=== PATIENT | female | born 1940 | race Caucasian/White ===

== ENCOUNTER 2018-03-12 15:24 | Outpatient (CLI) | payer MEDICARE | END 2018-03-12 15:25 | disposition home or self-care (01) | LOC: BICMAMMO 15:24 | PROVIDERS: ATTEND Family Medicine | DX: Z12.31 Encounter for screening mammogram for malignant neoplasm of breast (principal); R92.1 Mammographic calcification found on diagnostic imaging of breast | CPT/HCPCS: 77063; 77067 ==

== ENCOUNTER → 2019-01-08 | Day surgery (SDC) | payer MEDICARE ==
--- NOTE | 2019-01-08 16:50 | ULT ---
VENOUS DUPLEX SONOGRAM LEFT LOWER EXTREMITY: HISTORY: Left leg pain and edema. FINDINGS: The left common femoral vein and greater saphenous junction were evaluated, along with the femoral, d eep femoral, popliteal, and posterior tibial veins. There is good color and spectral Doppler flow and compression. IMPRESSION: No sonographic evidence of deep venous thrombosis within the left lower extremity. POS: NAVIN
== END ==
LOC: ULT 14:10
PROVIDERS: ATTEND Pathology Anatomic Pathology & Clinical Pathology
DX: M79.662 Pain in left lower leg (principal); R60.0 Localized edema; Z88.1 Allergy status to other antibiotic agents

== ENCOUNTER 2020-06-10 21:17 | Observation (INO) | payer MEDICARE, OTHER ==
[2020-06-10] MEDS ORDERED: Senokot S 8.6-50 MG TAB PO PRN (23:15)
[2020-06-10 23:27] VITALS: BMI 41.2
[2020-06-10] MEDS ORDERED: Carvedilol 6.25 MG TAB PO SCH (23:30)
[2020-06-10] MEDS ORDERED: Lisinopril 10 MG TAB PO SCH (23:30)
[2020-06-10] MEDS ORDERED: hydrALAZINE 10 MG TAB PO SCH (23:30)
[2020-06-11 00:02] LABS: Troponin I 0.063 ng/mL (< 0.028)
[2020-06-11] MEDS ORDERED: Dextrose 50% Abboject 50 ML SYRINGE SLOW IVP PRN (00:49)
[2020-06-11] MEDS ORDERED: Dextrose 5% in Water 1,000 ML IV PRN (00:49)
[2020-06-11] MEDS ORDERED: HumaLOG 300 UNITS/3 ML VIAL SC PRN (00:49)
--- NOTE | 2020-06-11 01:30 | HP ---
CHIEF COMPLAINT: Chest pain. HISTORY OF PRESENT ILLNESS: Ms. Castillo is a 79-year-old female who reports to the emergency room in [place] today for chest pain, which she reports started after she had been stung multiple times by a hive of wasps that she disturbed while she was mowing. She reports multiple stings. Reports that they called 911. EMS came out, gave her some Benadryl and watched her and then when she started having chest pain, she wanted them to take her to the emergency room. She denies any history of any cardiovascular issues. She said that she has had an echo and a stress test many years ago and both were fine. She does have a past medical history pertinent for diabetes type 2, hyperlipidemia, and hypertension. She reports family history of cardiac is distant, grandparents. In the emergency room, they noticed that her troponin was in the indeterminate range. She received an aspirin, Benadryl, morphine, Solu-Medrol, and some normal saline. Her EKG over in [place] was a normal sinus rhythm, beats per minute 71, left axis deviation, no ST-T wave changes, and then she was sent over to [facility] for admission. REVIEW OF SYSTEMS: Reports chest pain. Reports a little shortness of breath. Reports pain from the wasps stings. She denies any fever or chills. Reports some transient abdominal pain. Denies any nausea. Denied any diaphoresis. All other systems are reviewed and are negative unless mentioned in the HPI. PAST MEDICAL HISTORY: Please see HPI. PAST SURGICAL HISTORY: Hysterectomy, several knee surgeries, bilateral knee replacement, left shoulder rotator cuff, spinal surgery, tonsillectomy, 2 cataract surgeries. PSYCHIATRIC HISTORY: Anxiety, depression. SOCIAL HISTORY: Denies any alcohol or drug use. No smoking history. ALLERGIES: CIPRO AND LEVAQUIN. CURRENT MEDICATIONS: Per the ER system, which still need to be verified; 1. Carvedilol 12.5 mg p.o. b.i.d. 2. Hydralazine 10 mg p.o. b.i.d. 3. Lisinopril 40 mg p.o. once a day. 4. Metformin 500 mg p.o. b.i.d. 5. Pravastatin 40 mg p.o. once a day in the evening. 6. Amlodipine 5 mg p.o. once a day. 7. Sertraline 50 mg p.o. q. day. PHYSICAL EXAMINATION: VITAL SIGNS: Blood pressure 159/77, pulse is 71, respiratory rate is 18, pO2 sats are 94% on room air. CONSTITUTIONAL: The patient is alert and oriented to person, place, and time. HEAD: Atraumatic and normocephalic. EYES: Pupils are equally round and reactive to light. ENT: Mouth exam is normal. Mucous membranes are moist. NECK: Normal range of motion. Trachea is midline. RESPIRATORY/CHEST: Breath sounds are clear. Chest expansion is equal. CARDIOVASCULAR: Regular rate and rhythm. Heart sounds are normal. ABDOMEN: Nontender. Bowel sounds are heard. NEUROLOGIC: The patient is oriented to person, place, and time. Speech is normal. SKIN: Warm and dry. She does have some mild erythema and swelling to the upper extremities where the patient was stung multiple times. PSYCH: The patient has a normal affect. She is oriented to person, place, and time. PLAN/ASSESSMENT: 1. Chest pain after being stung by multiple wasps. We will order serial troponins. She had one in the [place] that was in the indeterminate range. We will order fasting lipids and a TSH level. Once serial troponins are resulted, can determine further steps. 2. History of hypertension. We will restart home medications. 3. History of diabetes, a.c. and at bedtime Accu-Cheks with some sliding scale. We will restart her home medication close to discharge. 4. History of anxiety and depression. We will restart her Zoloft. 5. Deep venous thrombosis and gastrointestinal prophylaxis have been started. 6. Case discussed with Dr. Franks who agrees with plan. Job ID: [id number]
[2020-06-11 03:16] LABS: #Lymphocytes 0.8 thou/uL (1.20-3.40); #Neutrophils 8.4 thou/uL (1.40-6.50); %Basophils 0.1 % (0.0-1.0); %Lymphocytes 8.3 % (21.0-51.0); %Monocytes 0.3 % (0.0-10.0); %Neutrophils 91.3 % (42.0-75.0); Hemoglobin 12.9 g/dL (12.0-16.0); Mean Corpuscular HGB CONC 33.1 g/dL (32.0-36.0); Mean Corpuscular Hemoglobin 31.5 pg (27.0-31.0); Mean Corpuscular Volume 95.1 fL (78.0-98.0); Mean Platelet Volume 6.7 fL (7.4-10.4); Platelet Count 256 thou/uL (130-400); White Blood Cell (WBC) Count 9.2 thou/uL (4.8-10.8)
[2020-06-11 03:47] LABS: ALT (SGPT) 17 U/L (8-55); AST (SGOT) 17 U/L (5-34); Albumin 3.8 g/dL (3.4-4.8); Alkaline Phosphatase 57 U/L (40-110); Anion Gap 13 mmol/L (10-20); BUN (Urea Nitrogen) 29 mg/dL (9.8-20.1); Bilirubin, Total 0.5 mg/dL (0.2-1.2); Calc. Creatinine Clearance 74 mL/min (70-130); Calcium 9.8 mg/dL (7.8-10.44); Carbon Dioxide 23 mmol/L (23-31); Chloride 108 mmol/L (98-107); Cholesterol 174 mg/dl (< 200 Desired); Estimated GFR-MDRD 54; Globulin 2.6 g/dL (2.4-3.5); Glucose 269 mg/dL (83-110); HDL Cholesterol 44 mg/dL (>60 Neg Risk); LDL Cholesterol, Calculated 109 mg/dL; Protein, Total 6.4 g/dL (6.0-8.3); Sodium 140 mmol/L (136-145); Triglycerides 104 mg/dL (Less than 150)
[2020-06-11 03:52] LABS: Troponin I 0.039 ng/mL (< 0.028)
[2020-06-11] MEDS: Aspirin 81 mg Enteric Coated Tablet PO SCH (08:46)
[2020-06-11] MEDS: Enoxaparin Sodium 40 MG/0.4 ML SYRINGE SC SCH (08:47)
[2020-06-11] MEDS: Amlodipine 5 MG TAB PO SCH (08:47)
[2020-06-11] MEDS: Famotidine 20 MG TAB PO SCH ×2 (08:48→20:52)
[2020-06-11] MEDS ORDERED: Ibuprofen 200 MG TAB PO PRN (08:58)
[2020-06-11] MEDS ORDERED: hydrALAZINE 10 MG TAB PO SCH (09:00)
[2020-06-11] MEDS ORDERED: Lorazepam 2 MG/ML VIAL SLOW IVP PRN (12:31)
[2020-06-11] MEDS: Carvedilol 6.25 MG TAB PO SCH ×2 (12:38→20:52)
[2020-06-11] MEDS: Lisinopril 20 MG TAB PO SCH (12:38)
[2020-06-11] MEDS: cloNIDine 0.1 MG TAB PO PRN (17:58)
[2020-06-11] MEDS: HumaLOG 300 UNITS/3 ML VIAL SC PRN (18:00)
[2020-06-11] MEDS: hydrALAZINE 25 MG TAB PO SCH (20:53)
[2020-06-11] MEDS ORDERED: Atorvastatin Calcium 10 MG TAB PO SCH (21:00)
[2020-06-11] MEDS ORDERED: Melatonin 3 MG TAB PO PRN (21:29)
[2020-06-12] MEDS: HumaLOG 300 UNITS/3 ML VIAL SC PRN (06:34)
[2020-06-12 08:04] VITALS: TEMP 97.6
[2020-06-12] MEDS: Aspirin 81 mg Enteric Coated Tablet PO SCH (08:46)
[2020-06-12] MEDS: Famotidine 20 MG TAB PO SCH (08:46)
[2020-06-12] MEDS: hydrALAZINE 25 MG TAB PO SCH ×2 (08:46→13:57)
[2020-06-12] MEDS: Enoxaparin Sodium 40 MG/0.4 ML SYRINGE SC SCH (08:46)
[2020-06-12] MEDS: Lisinopril 20 MG TAB PO SCH (08:47)
[2020-06-12] MEDS: Carvedilol 6.25 MG TAB PO SCH (08:47)
[2020-06-12] MEDS: Amlodipine 5 MG TAB PO SCH (08:47)
[2020-06-12] MEDS ORDERED: ADENOSINE 60 MG/20 ML VIAL ONE (11:09)
[2020-06-12 11:54] LABS: SARS-CoV-2 MS2 Positive; SARS-CoV-2 N Gene Negative; SARS-CoV-2 S Gene Negative; SARS-CoV-2 by NAA Not Detected (NotDetected); SARS-CoV-2 orf1ab Negative
--- NOTE | 2020-06-12 12:04 | NM ---
NUCLEAR MEDICINE CARDIAC MYOCARDIAL PERFUSION SPECT EJECTION FRACTION STUDY WALL MOTION CINE: DATE: 06/12/2020 HISTORY: 79-year-old female with hypertension, diabetes mellitus, and dyslipidemia, presents with chest pain TECHNIQUE: Number of days: 2 Rest study: Technetium 99m-sestamibi (Cardiolite) dose: 27.6 mCi Pharmacologic stress: Adenosine dose: 55.5 mg Stress study: Technetium 99m-sestamibi (Cardiolite) dose: 30.0 mCi FINDINGS: CARDIAC (MYOCARDIAL PERFUSION) SPECT There are no reversible myocardial perfusion defects. EJECTION FRACTION STUDY Left ventricular EF = 73 % WALL MOTION CINE No focal wall motion abnormality. IMPRESSION: No evidence of reversible ischemia.
[2020-06-12] MEDS: cloNIDine 0.1 MG TAB PO PRN (12:25)
[2020-06-12 14:00] VITALS: BP 182/72
--- NOTE | 2020-06-13 08:02 | DIS ---
DATE OF ADMISSION: 06/10/2020 DATE OF DISCHARGE: 06/12/2020 PRIMARY CARE PROVIDER: Dalila Bains DO. DISPOSITION: Discharged to home. FINAL DIAGNOSES: 1. Chest pain. 2. Hypertension. 3. Diabetes mellitus type 2. 4. Dyslipidemia. DISCHARGE MEDICATIONS: Same as home medicines. 1. Aspirin 81 mg a day. 2. Apresoline 10 mg twice a day. 3. Vitamins. 4. Metformin 500 mg twice a day. 5. Sertraline 50 mg a day. 6. Pravastatin 40 mg a day. 7. Lisinopril 40 mg a day. 8. Coreg 12.5 mg a day. 9. Amlodipine 5 mg a day. ALLERGIES: CIPROFLOXACIN AND LEVOFLOXACIN. DIET: Diabetic. CODE STATUS: Full. PENDING AT THE TIME OF DISCHARGE: Nothing. HOSPITAL COURSE: The patient was admitted through the emergency room to the Hospitalist Service, with being stung by wasps several times. She had chest pain, came to the emergency room. No history of heart disease. Her initial laboratory revealed troponins of 0.063 and 0.039. Lytes; sodium 140, potassium 4.0, chloride 108, carbon dioxide 23, BUN 29, creatinine 1.0. Blood sugars were in the 200 range. COVID was negative. CBC unremarkable. Nuclear medicine cardiac stress test was negative for reversible ischemia. LVEF was 70 plus. We have had some difficulty controlling her blood pressure, but she has had medicine, she is currently 182/72 and 184/74, the last 2 numbers. She is very anxious because her with Alzheimer's is at home with grandson and she feels she needs to be there. We discussed that. We agreed that it was likely that her blood pressure was elevated to that. She said she would go see her primary care doctor in 2 to 3 days to get her blood pressure check and to follow up on that. We both agreed that was reasonable and she would be discharged. Job ID: [id number]
== END 2020-06-12 16:45 | disposition home or self-care (01) ==
LOC: INTOOBSV 22:35 → 2SE 22:35
PROVIDERS: ADMIT Internal Medicine; ATTEND Internal Medicine
DX: T63.461A Toxic effect of venom of wasps, accidental (unintentional), initial encounter (principal); R07.9 Chest pain, unspecified; E11.9 Type 2 diabetes mellitus without complications; E78.5 Hyperlipidemia, unspecified; I10 Essential (primary) hypertension; F41.9 Anxiety disorder, unspecified; F32.9 Major depressive disorder, single episode, unspecified; Z79.82 Long term (current) use of aspirin; Z79.84 Long term (current) use of oral hypoglycemic drugs; Z79.899 Other long term (current) drug therapy; Z88.1 Allergy status to other antibiotic agents; Z20.828 Contact with and (suspected) exposure to other viral communicable diseases
CPT/HCPCS: 78452; 80061; 82962 ×2; 84484 ×2; 93005; 93017; A9500; U0003; 36415; 36416; 80053; 84443; 85025; 87635; 93010; 96372; G0378; J0153; J1650

== ENCOUNTER 2022-06-14 09:38 | Observation (INO) | payer MEDICARE ==
[2022-06-14 14:28] VITALS: BMI 40.9
[2022-06-14] MEDS ORDERED: Acetaminophen 325 MG TAB PO PRN (18:34)
[2022-06-14] MEDS ORDERED: Ibuprofen 200 MG TAB PO PRN (18:35)
[2022-06-14] MEDS ORDERED: hydrALAZINE 20 MG/ML VIAL SLOW IVP PRN ×2 (18:48→22:31)
[2022-06-14] MEDS: Carvedilol 6.25 MG TAB PO SCH (20:28)
[2022-06-14] MEDS: cloNIDine 0.1 MG TAB PO SCH (20:29)
[2022-06-14] MEDS: hydrALAZINE 10 MG TAB PO SCH (20:29)
[2022-06-14] MEDS: Oxybutynin 5 MG TAB PO SCH (20:29)
[2022-06-14] MEDS ORDERED: Rosuvastatin 20 MG TAB PO SCH (21:00)
[2022-06-14] MEDS ORDERED: Calcium Carbonate 500 MG TAB PO SCH (21:00)
[2022-06-14] MEDS ORDERED: Ondansetron ODT 4 MG TAB PO PRN (22:29)
[2022-06-14] MEDS ORDERED: Acetaminophen 650 MG Suppository PR PRN (22:29)
[2022-06-14] MEDS ORDERED: Ondansetron PF 4 MG/2 ML Vial IVP PRN (22:29)
[2022-06-14] MEDS ORDERED: HumaLOG 300 UNITS/3 ML VIAL SC PRN ×2 (22:35)
[2022-06-14] MEDS ORDERED: Dextrose 50% Abboject 50 ML SYRINGE SLOW IVP PRN (22:35)
[2022-06-14] MEDS ORDERED: Dextrose 5% in Water 1,000 ML IV PRN (22:35)
[2022-06-15] MEDS ORDERED: Melatonin 3 MG TAB PO SCH ×2 (01:00→21:00)
[2022-06-15] MEDS ORDERED: Melatonin 3 MG TAB PO PRN (01:11)
[2022-06-15] MEDS ORDERED: Morphine 2 MG/ML VIAL SLOW IVP PRN (01:11)
[2022-06-15] MEDS ORDERED: metFORMIN 500 MG TAB PO SCH (08:00)
[2022-06-15] MEDS ORDERED: Amlodipine 10 MG TAB PO SCH (09:00)
[2022-06-15] MEDS ORDERED: Aspirin 81 mg Enteric Coated Tablet PO SCH (09:00)
[2022-06-15] MEDS ORDERED: Lisinopril 20 MG TAB PO SCH (09:00)
[2022-06-15] MEDS: cloNIDine 0.1 MG TAB PO SCH (10:00)
[2022-06-15] MEDS: Carvedilol 6.25 MG TAB PO SCH (10:01)
[2022-06-15] MEDS: hydrALAZINE 10 MG TAB PO SCH (10:01)
[2022-06-15] MEDS: Oxybutynin 5 MG TAB PO SCH (10:02)
[2022-06-15] MEDS ORDERED: Iopamidol-370 76% 500 ML 1 ML ONE (10:58)
[2022-06-15 15:46] VITALS: BP 178/79; TEMP 98
== END 2022-06-15 17:37 | disposition home or self-care (01) ==
LOC: 2SW 13:58
PROVIDERS: ADMIT Internal Medicine; ATTEND Hospitalist
DX: R07.89 Other chest pain (principal); E11.9 Type 2 diabetes mellitus without complications; E78.5 Hyperlipidemia, unspecified; I10 Essential (primary) hypertension; R60.9 Edema, unspecified; E66.01 Morbid (severe) obesity due to excess calories; Z68.41 Body mass index [BMI] 40.0-44.9, adult; Z20.822 Contact with and (suspected) exposure to COVID-19; Z79.82 Long term (current) use of aspirin; Z79.84 Long term (current) use of oral hypoglycemic drugs; Z88.1 Allergy status to other antibiotic agents
CPT/HCPCS: 71275; 82962; 93306; U0003; U0005; 36416; 96374; G0378; J0360; Q9967

== ENCOUNTER 2023-05-01 10:43 | Outpatient (CLI) | payer MEDICARE ==
[2023-05-01 13:18] LABS: #Eosinphils 0.4 10x3/uL (0.0-0.5); #Neutrophils 6.8 10x3/uL (1.5-8.4); %Basophils 0.4 % (0.0-2.0); %Eosinophils 3.7 % (0.0-6.0); %Lymphocytes 16.7 % (18.0-47.0); %Monocytes 9.9 % (0.0-10.0); %Neutrophils 69.1 % (40.0-75.0); Hemoglobin 11.5 g/dL (12.0-15.5); Mean Corpuscular Hemoglobin 30.1 pg (27.0-33.0); Mean Corpuscular Volume 91.4 fl (81.6-98.3); Mean Platelet Volume 9.9 fl (7.4-10.4); Platelet Count 318 10x3/uL (150-450); Red Blood Cell (RBC) Count 3.82 10x6/uL (3.90-5.03); White Blood Cell (WBC) Count 9.8 10x3/uL (3.5-10.5)
== END 2023-05-01 10:44 | disposition home or self-care (01) ==
LOC: LABBT 10:43
PROVIDERS: ATTEND Orthopaedic Surgery Hand Surgery
DX: Z01.818 Encounter for other preprocedural examination (principal); G56.03 Carpal tunnel syndrome, bilateral upper limbs
CPT/HCPCS: 85025; 93005; 93010